=== PATIENT | female | born 1985 ===

== ENCOUNTER 2018-04-08 01:56 | Inpatient (IN) | payer MEDICAID ==
[2018-04-08 02:39] LABS: APPEARANCE,URINE CLOUDY; BILIRUBIN,URINE NEGATIVE (NEGATIVE); COLOR,URINE YELLOW; GLUCOSE, URINE NEGATIVE (NEGATIVE); KETONES,URINE NEGATIVE (NEGATIVE); LEUKOCYTE ESTERASE,URINE NEGATIVE (NEGATIVE); NITRITE,URINE NEGATIVE (NEGATIVE); PROTEIN,URINE 30 mg/dL (NEGATIVE); URINE SPECIFIC GRAVITY 1.012; UROBILINOGEN,URINE NEGATIVE mg/dL (<2.0)
[2018-04-08] MEDS ORDERED: RINGERS SOLUTION,LACTATED 1,000 ML IV ONE (03:00)
[2018-04-08 03:02] LABS: URINE AMPHETAMINES SCREEN NEGATIVE; URINE BARBITURATES SCREEN NEGATIVE; URINE COCAINE SCREEN NEGATIVE; URINE MARIJUANA (THC) SCREEN NEGATIVE; URINE METHADONE SCREEN NEGATIVE; URINE PHENCYCLIDINE SCREEN NEGATIVE
[2018-04-08 03:21] LABS: URINE BENZODIAZEPINES SCREEN NEGATIVE
[2018-04-08 03:25] LABS: ABSOLUTE EOSINOPHILS # (AUTO) 0.1 10^3/uL (0.0-0.6); ABSOLUTE LYMPHOCYTES (AUTO) 2.3 10^3/uL (0.5-4.7); ABSOLUTE MONOCYTES (AUTO) 0.7 10^3/uL (0.1-1.4); ABSOLUTE NEUT (AUTO) 5.3 10^3/uL (1.7-8.2); BASOPHILS % (AUTO) 0.3 % (0-2); EOSINOPHILS % (AUTO) 0.9 % (0-6); HEMATOCRIT 30.6 % (36.0-47.0); HEMOGLOBIN 10.5 g/dL (12.0-15.5); LYMPHOCYTES % (AUTO) 27.9 % (13-45); MEAN CORPUSCULAR HEMOGLOBIN 28.4 pg (27.0-33.4); MEAN CORPUSCULAR HGB CONC 34.4 g/dL (32.0-36.0); MEAN CORPUSCULAR VOLUME 83 fl (80-97); MONOCYTES % (AUTO) 8.1 % (3-13); PLATELET COUNT 198 10^3/uL (150-450); RED BLOOD COUNT 3.71 10^6/uL (3.72-5.28); RED CELL DISTRIBUTION WIDTH 13.5 % (11.5-14.0); SEGMENTED NEUTROPHILS % (AUTO) 62.8 % (42-78); TOTAL CELLS COUNTED % (AUTO) 100 %; WHITE BLOOD COUNT 8.4 10^3/uL (4.0-10.5)
[2018-04-08] MEDS ORDERED: CEFAZOLIN 2 GM/D5W RTU 0 GM/0 ML RTUPB IV ONE (04:09)
[2018-04-08] MEDS ORDERED: CITRIC ACID/SODIUM CITRATE ORAL SOLN 15 ML UDCUP ONE (04:09)
[2018-04-08] MEDS ORDERED: CEFAZOLIN 1 GM/D5W RTU 1 GM/50 ML RTUPB IV ONE (04:11)
[2018-04-08] MEDS ORDERED: MISOPROSTOL 0.2 MG TABLET ONE (04:35)
[2018-04-08] MEDS ORDERED: MIDAZOLAM 2 MG/2 ML INJ ONE (05:08)
[2018-04-08] MEDS ORDERED: FENTANYL CITRATE INJ/PF 100 MCG/2 ML AMPUL ONE (05:08)
[2018-04-08] MEDS ORDERED: OXYTOCIN 10 UNIT/ML VIAL ONE (05:09)
[2018-04-08] MEDS ORDERED: BUPIVACAINE HCL/DEX-WATER/PF 15 MG/2 ML AMPULE ONE (05:09)
--- NOTE | 2018-04-08 05:18 | Admission Physical ---
Datetime Report Generated by CPN: 04/08/2018 05:17 CURRENT ADMISSION Chief Complaint: Suspected Ruptured Membranes Chief Complaint Other: Breech presentation. was scheduled for c/section for ursday Indication for Induction: Not Applicable Admit Impression : Term, Intrauterine Admit Plan: Admit to Unit; Initiate Section Protocol ALLERGIES Medication Allergies: No Medication Allergies: No Known Allergies (04/08/2018) Latex: No Latex Allergies OBSTETRICAL HISTORY EDC: 04/13/2018 00:00 : 4 Para: 0 Gestational Diabetes: Yes Rh Sensitization: No Incompetent Cervix: No CHARANJIT: No Infertility: No ART Treatment: No Uterine Anomaly: No IUGR: No Hx Previous C/S: No Macrosomia: No Hx Loss/Stillborn: No PIH: No Hx : No Placenta Previa/Abruption: No Depression/PP Depression: No PTL/PROM: No Post Hemorrhage: No Current Procedures: Ultrasound; NST Obstetrical History Comments: G1 G2 G3 G4- current, hematoma, uterine fibroid x2 SEE RECORDS Alcohol: No Marijuana : No Cocaine: No Other Illicit Drugs: No Cigarettes: Never Smoker. [id number] MEDICAL HISTORY Diabetes: Yes Diabetes Type: Gestational Diabetes Blood Transfusion: No Pulmonary Disease (Asthma, TB): No Breast Disease: No Hypertension: No [place] Surgery: No Heart Disease: No Hosp/Surgery: Yes Autoimmune Disorder: No Anesthetic Complications: No Kidney Disease: No Abnormal Pap Smear: No Neuro/Epilepsy: No Psychiatric Disorders: No Other Medical Diseases: No Hepatitis/Liver Disease: No Significant Family History: No Varicosities/Phlebitis: No Trauma/Violence : No Thyroid Dysfunction: No Medical History Comments: cyst removed from lower spine INFECTIOUS HISTORY Gonorrhea: No Genital Herpes: No Chlamydia: No Tuberculosis: No Syphilis: No Hepatitis: No HIV/AIDS Exposure: No Rash or Viral Illness: No HPV: No PHYSICAL EXAM General: Normal HEENT: Normal Neurologic: Normal Thyroid: Normal Heart: Normal Lungs: Normal Breast: Normal Back: Normal Abdomen: Normal Genitourinary Exam: Normal Extremities: Normal DTRs: Normal Pelvic Type: Adequate Vital Signs: Reviewed; Within Normal Limits VAGINAL EXAM Dilatation: 0 Effacement: 0 Station: -3 MEMBRANES Pooling: Positive Membranes: Ruptured Amniotic Fluid Color: Clear FETUS A EGA: 39.2 Monitoring: External US FHR- Baseline: 130 Variability: Moderate 6-25bpm Accelerations: 15X15 Decelerations: None FHR Category: Category I Estimated Weight (gm): 3500 Presentation: Vertex PLANS FOR LABOR AND DELIVERY Labor and Delivery: None Pain Management: None Feeding Preference: Breast Benefit of Breast Feed Discussed: Yes Circumcision: N/A INFORMED CONSENT Signature: with User ID: [email or web address]
[2018-04-08] MEDS ORDERED: ACETAMINOPHEN 1,000 MG/100 ML RTUPB IV ONE (06:10)
[2018-04-08] MEDS ORDERED: ONDANSETRON HCL INJ/PF 4 MG/2 ML SDV IV PRN (06:17)
[2018-04-08] MEDS ORDERED: MORPHINE SULFATE 10 MG/ML INJ IV PRN ×2 (06:17→07:25)
[2018-04-08] MEDS ORDERED: PROMETHAZINE HCL INJ 25 MG/1 ML VIAL IV PRN ×3 (06:17→07:25)
[2018-04-08] MEDS ORDERED: MEPERIDINE HCL/PF INJ 25 MG/1 ML DISP.SYRIN IV PRN (06:17)
[2018-04-08] MEDS ORDERED: FENTANYL CITRATE INJ/PF 100 MCG/2 ML AMPUL IV PRN ×3 (06:17)
[2018-04-08] MEDS ORDERED: DIPHENHYDRAMINE HCL 50 MG/ML VIAL IV PRN (06:17)
[2018-04-08] MEDS ORDERED: MEPERIDINE HCL/PF INJ 25 MG/1 ML DISP.SYRIN ONE (06:53)
[2018-04-08] MEDS ORDERED: OXYCODONE-ACETAMINOPHEN 5-325 MG TABLET PO PRN ×2 (07:25)
[2018-04-08] MEDS ORDERED: SIMETHICONE 80 MG TAB.CHEW PO PRN (07:25)
[2018-04-08] MEDS ORDERED: ACETAMINOPHEN 1,000 MG/100 ML RTUPB IV PRN (07:25)
[2018-04-08] MEDS ORDERED: MEASLES,MUMPS&RUBELLA VACC/PF 0.5 ML VIAL SUBCUT PRN (07:25)
[2018-04-08] MEDS ORDERED: OXYTOCIN/NORMAL SALINE 20 UNIT/1,000 ML RTUINJ IV PRN (07:25)
[2018-04-08] MEDS ORDERED: DIPH/PERTUSS(ACELL)/TETANUS VAC/PF 0.5 ML SYR (>=10YO) IM PRN (07:25)
[2018-04-08] MEDS ORDERED: ACETAMINOPHEN 325 MG TABLET PO PRN (07:25)
[2018-04-08] MEDS: DOCUSATE SODIUM 100 MG CAPSULE PO SCH ×2 (09:30→18:07)
[2018-04-08] MEDS: PRENATAL VITAMIN W DHA CAPSULE PO SCH (09:30)
[2018-04-08] MEDS ORDERED: KETOROLAC TROMETHAMINE 60 MG/2 ML SDV ONE (09:37)
[2018-04-08] MEDS ORDERED: GLYCOPYRROLATE 1 MG/5 ML SYRINGE ONE (09:37)
[2018-04-08] MEDS ORDERED: METOCLOPRAMIDE HCL INJ/PF 10 MG/2 ML SDV ONE (09:37)
[2018-04-08] MEDS ORDERED: ONDANSETRON HCL INJ/PF 4 MG/2 ML SDV ONE (09:37)
[2018-04-08] MEDS ORDERED: DEXAMETHASONE SOD PHOSPHATE INJ 4 MG/1 ML VIAL ONE (09:37)
--- NOTE | 2018-04-08 10:00 | OPERATIVE REPORT E ---
Operative Report NAME: DAVID RAMOS : 1985 AGE: 32Y DATE OF SURGERY: 04/08/2018 ROOM: 227 PREOPERATIVE DIAGNOSIS: INTRAUTERINE AT 39 WEEKS 0 DAYS, BREECH PRESENTATION, RUPTURE OF MEMBRANES. POSTOPERATIVE DIAGNOSIS: INTRAUTERINE AT 39 WEEKS 0 DAYS, BREECH PRESENTATION, RUPTURE OF MEMBRANES. OPERATION: Low transverse hysterotomy section. SURGEON: DULCE MESA M.D. ANESTHESIA: Dr. Lehman with spinal. FINDINGS: Female in jeannie breech presentation with Apgars of 9 and 9. ESTIMATED BLOOD LOSS: 750 mL SPECIMENS REMOVED: None. COMPLICATIONS: None. PROCEDURE: The patient was taken to the operating room, prepared and draped in normal sterile fashion in the supine position with a leftward tilt. A transverse skin incision was made with a scalpel and carried through the underlying layer of fascia with the same scalpel. The fascia was incised in the midline and extended laterally with Pauls. The fascia was dissected from the rectus muscles sharply with Cali, and the rectus muscle was divided. The peritoneal cavity was entered bluntly with surgeon finger fracture. The bladder blade was inserted. The hysterotomy was nicked with a scalpel and extended laterally with surgeon finger fracture. The infant's buttocks were then grasped and delivered using the appropriate maneuvers. The rest of the infant delivered easily with *------* as well as maxillofacial flexion without difficulty. The nose and mouth were suctioned with a suction bulb. The cord was clamped and cut, and the was handed off to waiting physical sciences instructor. Cord blood was collected. The placenta was removed manually. The uterus was exteriorized and cleared of clots and debris. Hysterotomy was closed with 0 Monocryl in a running locked fashion. A second layer of the same suture was used to imbricate to ensure hemostasis. The uterus was returned to the abdomen. The peritoneal cavity was cleared of clots and debris. The rectus muscle and peritoneum were reapproximated with a mattress stitch of 2-0 Chromic. The fascia was closed with 0 Vicryl. The subcutaneous layer was closed with plain catgut. The skin was closed with 4-0 Vicryl. The patient tolerated the procedure well. Sponge, lap, and needle counts were correct x2. The patient was taken to recovery in stable condition. DICTATING PHYSICIAN: DULCE MESA M.D. [id number] PHY#: [id number] ID: [id number] JOB#: [id number] ACCT: [id number] cc:DULCE MESA M.D. >
[2018-04-08] MEDS: KETOROLAC TROMETHAMINE INJ/PF 30 MG/1 ML SDV IV SCH ×2 (14:01→22:11)
[2018-04-08] MEDS: FAMOTIDINE INJ/PF 20 MG/2 ML SDV IV SCH (18:53)
[2018-04-08] MEDS ORDERED: DIPHENHYDRAMINE HCL 50 MG CAPSULE PO PRN (21:13)
[2018-04-09] MEDS: KETOROLAC TROMETHAMINE INJ/PF 30 MG/1 ML SDV IV SCH (06:38)
[2018-04-09 07:11] LABS: HEMATOCRIT 25.6 % (36.0-47.0); HEMOGLOBIN 8.6 g/dL (12.0-15.5); MEAN CORPUSCULAR HEMOGLOBIN 28.1 pg (27.0-33.4); MEAN CORPUSCULAR HGB CONC 33.6 g/dL (32.0-36.0); MEAN CORPUSCULAR VOLUME 84 fl (80-97); PLATELET COUNT 185 10^3/uL (150-450); RED BLOOD COUNT 3.06 10^6/uL (3.72-5.28); RED CELL DISTRIBUTION WIDTH 13.6 % (11.5-14.0); WHITE BLOOD COUNT 10.3 10^3/uL (4.0-10.5)
[2018-04-09] MEDS: PRENATAL VITAMIN W DHA CAPSULE PO SCH (10:00)
[2018-04-09] MEDS: DOCUSATE SODIUM 100 MG CAPSULE PO SCH ×2 (10:00→18:09)
--- NOTE | 2018-04-09 11:53 | PDOC DISCHARGE SUMMARY ---
Final Diagnosis Discharge Date: 04/09/18 - Final Diagnosis (1) delivery delivered Is this a current diagnosis for this admission?: Yes Discharge Data - Discharge Medication Prescriptions: Ibuprofen [Motrin 800 mg Tablet] 800 mg PO Q6HP PRN #60 tablet PRN Reason: Home Medications: 95/Iron Fum/Folic/Dha [ + Dha Combo Pack] 1 tab PO DAILY Ibuprofen [Motrin 800 mg Tablet] 800 mg PO Q6HP PRN #60 tablet 04/09/18 Procedures: NST Intrapartum Procedure(s): : Low Cervical, Transverse - Diagnosis Test Laboratory: Temp Pulse Resp BP Pulse Ox 98.1 F 77 14 109/70 99 04/09/18 08:30 04/09/18 08:30 04/09/18 08:30 04/09/18 08:30 04/09/18 08:30 04/08/18 04/08/18 04/09/18 01:59 03:03 07:00 RBC 3.71 L 3.06 L Hgb 10.5 L 8.6 L Hct 30.6 L 25.6 L Urine Opiates Screen NEGATIVE - Discharge information/Instructions Discharge Activity: Balance Activity w/Rest, No Lifting/Push/Pulling, Pelvic Rest, No tub bath Discharge Diet: Regular Disposition: HOME, SELF-CARE Follow up with: [facility] in: 1, Weeks
--- NOTE | 2018-04-09 12:06 | PDOC PROGRESS REPORT ---
Subjective-OB Progress Note for:: 04/09/18 Subjective: states she has been up out of bed, crouch is out and she is voiding, bleeding is minimal. pain is controlled with motrin only. Physical Exam (OB) Vital Signs: Temp Pulse Resp BP Pulse Ox 98.1 F 77 14 109/70 99 04/09/18 08:30 04/09/18 08:30 04/09/18 08:30 04/09/18 08:30 04/09/18 08:30 Intake & Output 04/08/18 04/09/18 04/10/18 06:59 06:59 06:59 Intake Total 1736 300 Output Total 2350 Balance -614 300 Weight 93.4 kg 87.6 kg - Dressing Removed: Yes - opsite dressing D&I, small old drainage notd Incision: Well Approximated - Abdomen Description: Tender, Soft Hernia Present: No Fundal Description: Firm, Midline Fundal Height: u/u - u/2 - Abdominal Distension: No distension - Extremities Lower extremities: Melvin's sign - neg Calf: Normal, Nontender Objective-Diagnostic Laboratory: 04/09/18 07:00 04/09/18 07:00 WBC 10.3 RBC 3.06 L Hgb 8.6 L Hct 25.6 L MCV 84 MCH 28.1 MCHC 33.6 RDW 13.6 Plt Count 185 Assessment and Plan(PN) - Assessment and Plan (1) delivery delivered Is this a current diagnosis for this admission?: Yes - Time Spent with Patient Time with patient: Less than 15 minutes Medications reviewed and adjusted accordingly: Yes - Disposition Anticipated Discharge: Home Within: within 24 hours
[2018-04-09] MEDS: IBUPROFEN 800 MG TABLET PO SCH ×3 (13:50→23:20)
[2018-04-09] MEDS: FAMOTIDINE INJ/PF 20 MG/2 ML SDV IV SCH (21:01)
[2018-04-10] MEDS: IBUPROFEN 800 MG TABLET PO SCH ×4 (05:57→23:36)
--- NOTE | 2018-04-10 09:13 | PDOC PROGRESS REPORT ---
Subjective-OB Progress Note for:: 04/10/18 Subjective: Doing well, ready to go home, hsb at BS Physical Exam (OB) Vital Signs: Temp Pulse Resp BP Pulse Ox 98.0 F 87 18 116/70 98 04/10/18 08:02 04/10/18 08:02 04/10/18 08:02 04/10/18 08:02 04/10/18 08:02 Intake & Output 04/09/18 04/10/18 04/11/18 06:59 06:59 06:59 Intake Total 1736 2800 Output Total 2350 Balance -614 2800 Weight 87.6 kg - PIH/Pre-Eclampsia Headache: Absent Epigastric Pain: No Visual Changes: No - Dressing Removed: No - Opsite; dry drainage outlined Incision: Well Approximated - Lochia Lochia Amount: Scant < 10 ml Lochia Color: Rubra/Red - Abdomen Description: Tender, Soft, Round Hernia Present: No Fundal Description: Firm, Midline Fundal Height: u/u - u/2 Objective-Diagnostic Laboratory: 04/09/18 07:00 Assessment and Plan(PN) - Assessment and Plan (1) Anemia Qualifiers: Anemia type: iron deficiency Is this a current diagnosis for this admission?: Yes (2) delivery delivered Is this a current diagnosis for this admission?: Yes - Time Spent with Patient Time with patient: Less than 15 minutes Medications reviewed and adjusted accordingly: Yes - Disposition Anticipated Discharge: Home Within: within 24 hours
--- NOTE | 2018-04-10 09:15 | PDOC DISCHARGE SUMMARY ---
Final Diagnosis Discharge Date: 04/10/18 - Final Diagnosis (1) Anemia Is this a current diagnosis for this admission?: Yes (2) delivery delivered Is this a current diagnosis for this admission?: Yes Discharge Data - Discharge Medication Prescriptions: Oxycodone HCl/Acetaminophen [Percocet 5-325 mg Tablet] 1 tab PO Q4HP PRN #30 tablet PRN Reason: Ibuprofen [Motrin 800 mg Tablet] 800 mg PO Q6HP PRN #60 tablet PRN Reason: Home Medications: 95/Iron Fum/Folic/Dha [ + Dha Combo Pack] 1 tab PO DAILY Ibuprofen [Motrin 800 mg Tablet] 800 mg PO Q6HP PRN #60 tablet 04/09/18 Oxycodone HCl/Acetaminophen [Percocet 5-325 mg Tablet] 1 tab PO Q4HP PRN #30 tablet 04/10/18 Gestational Age: 39 Reason(s) for Admission: Ceasarean Section-Primary Procedures: NST, Ultrasound Intrapartum Procedure(s): : Low Cervical, Transverse - Diagnosis Test Laboratory: Temp Pulse Resp BP Pulse Ox 98.0 F 87 18 116/70 98 04/10/18 08:02 04/10/18 08:02 04/10/18 08:02 04/10/18 08:02 04/10/18 08:02 04/08/18 04/08/18 04/09/18 01:59 03:03 07:00 RBC 3.71 L 3.06 L Hgb 10.5 L 8.6 L Hct 30.6 L 25.6 L Urine Opiates Screen NEGATIVE - Discharge information/Instructions Discharge Activity: Balance Activity w/Rest, No Lifting/Push/Pulling, Pelvic Rest, No tub bath Discharge Diet: As Tolerated, Regular Disposition: HOME, SELF-CARE Follow up with: [facility] in: 1, Weeks
[2018-04-10] MEDS: FAMOTIDINE INJ/PF 20 MG/2 ML SDV IV SCH (10:38)
[2018-04-10] MEDS: PRENATAL VITAMIN W DHA CAPSULE PO SCH (10:38)
[2018-04-10] MEDS: DOCUSATE SODIUM 100 MG CAPSULE PO SCH ×2 (10:38→17:51)
[2018-04-11 05:46] VITALS: BP 122/68
[2018-04-11] MEDS: IBUPROFEN 800 MG TABLET PO SCH (06:03)
--- NOTE | 2018-04-11 09:22 | PDOC PROGRESS REPORT ---
Subjective Progress Note for:: 04/11/18 Subjective:: Patient states that she is ready to go home; decreasing lochia. She is ambulating and voiding without difficulty. She denies CP, SOB, F/C and N/V. Her pain is controlled with Motrin. is going well Reason For Visit: Physical Exam - Physical Exam Vital Signs: Temp Pulse Resp BP Pulse Ox 98.0 F 83 18 122/68 100 04/11/18 05:24 04/11/18 05:24 04/11/18 05:24 04/11/18 05:24 04/11/18 05:24 Intake & Output 04/10/18 04/11/18 04/12/18 06:59 06:59 06:59 Intake Total 2800 1600 Balance 2800 1600 General appearance: PRESENT: no acute distress Respiratory exam: PRESENT: clear to auscultation divya Cardiovascular exam: PRESENT: RRR GI/Abdominal exam: PRESENT: normal bowel sounds - Incision: C/D/I; no erythema, soft Extremities exam: ABSENT: calf tenderness, clubbing, full ROM, joint swelling, pedal edema, tenderness, +1 edema, +2 edema, other Result Laboratory Results: 04/09/18 07:00 Assessment & Plan - Diagnosis (1) Postoperative anemia Is this a current diagnosis for this admission?: Yes (2) Status post primary low transverse section Is this a current diagnosis for this admission?: Yes - Plan Summary Plan Summary: Plan: 1. s/p Primary C/S--POD#2--doing well surgically 2. Discharge home today 3. F/U in office in 1 week for incision check
== END 2018-04-11 09:45 | disposition home or self-care (01) | DRG 766 ==
LOC: LC 01:56 → LR 02:44 → 2S 08:10
PROVIDERS: ADMIT Obstetrics & Gynecology; ATTEND Obstetrics & Gynecology
PROC: 10D00Z1 Extraction of Products of Conception, Low, Open Approach (ICD-10-PCS; principal; 2018-04-08)
PROC: 4A1HXCZ Monitoring of Products of Conception, Cardiac Rate, External Approach (ICD-10-PCS; 2018-04-08)
PROC: 3E0234Z Introduction of Serum, Toxoid and Vaccine into Muscle, Percutaneous Approach (ICD-10-PCS; 2018-04-09)
DX: O64.8XX0 Obstructed labor due to other malposition and malpresentation, not applicable or unspecified (principal); O24.429 Gestational diabetes mellitus in childbirth, unspecified control; O34.13 Maternal care for benign tumor of corpus uteri, third trimester; D25.9 Leiomyoma of uterus, unspecified; O99.02 Anemia complicating childbirth; D50.8 Other iron deficiency anemias; Z3A.39 39 weeks gestation of pregnancy; Z37.0 Single live birth; Z23 Encounter for immunization
CPT/HCPCS: 1961; 36415; 80307; 81005; 84112; 85025; 85027; 86592; 86850; 86900; 86901; 90715; 94799; J0131; J0690; J1100; J1885; J2175; J2250; J2270; J2405; J2590; J2765; J3010; J3490; S0028